=== PATIENT | female | born 1975 | race African-American/Black ===

== ENCOUNTER → 2022-03-17 | Outpatient (CLI) | payer MEDICARE, OTHER, MEDICAID ==
[~2022-03-17] MED LIST: ASPI81TA87 PO; ATOR40TA28 PO; CLOP75TA60 PO
== END | disposition home or self-care (01) ==
LOC: RADMN 09:38
PROVIDERS: ATTEND Physical Medicine & Rehabilitation
DX: I69.354 Hemiplegia and hemiparesis following cerebral infarction affecting left non-dominant side (principal); R90.82 White matter disease, unspecified; J32.0 Chronic maxillary sinusitis; I68.0 Cerebral amyloid angiopathy
CPT/HCPCS: 70450